=== PATIENT | male | born 1970 | race Caucasian/White ===

== ENCOUNTER 2018-09-18 10:04 | Emergency (ER) | payer BC ==
[2018-09-18 10:23] VITALS: BP 124/89
--- NOTE | 2018-09-18 11:05 | UC ---
Truncal Trauma HPI - HPI Summary HPI Summary: 48 yo male presents with RIGHT rib pain. He tells me that 2 days ago he was playing kickball and another player ran into him, impacting his right ribs. Since that time has had pain in the area - worse with coughing, movement, and deep breaths. He has been taking ibuprofen with good relief. Denies SOB, chest pain, abdominal pain, n/v. - History Of Current Complaint Chief Complaint: UCTrauma Stated Complaint: RIB INJURY Time Seen by Provider: 09/18/18 11:05 Hx Obtained From: Patient Onset/Duration: Sudden Onset Severity Initially: Moderate Severity Currently: Moderate Pain Intensity: 6 Pain Scale Used: 0-10 Numeric - Allergies/Home Medications Allergies/Adverse Reactions: Allergies Allergy/AdvReac Type Severity Reaction Status Date / Time No Known Allergies Allergy Verified 09/18/18 10:17 Home Medications: Home Medications Naproxen Sodium [Aleve] 440 mg PO ONCE 09/18/18 [History Confirmed 09/18/18] PMH/Surg Hx/FS Hx/Imm Hx - Additional Past Medical History Additional PMH: None - Surgical History Surgical History: Yes Surgery Procedure, Year, and Place: Hernia surgery. Vastectomy - Family History Known Family History: Positive: Non-Contributory - Social History Occupation: Employed Full-time Lives: With Family Alcohol Use: Occasionally Substance Use Type: None Smoking Status (MU): Never Smoked Tobacco Review of Systems All Other Systems Reviewed And Are Negative: Yes Constitutional: Positive: Negative Skin: Positive: Negative Respiratory: Positive: Negative Cardiovascular: Positive: Negative Gastrointestinal: Positive: Negative Neurovascular: Positive: Negative Musculoskeletal: Positive: Other: - Right rib pain Neurological: Positive: Negative Psychological: Positive: Negative Physical Exam - Summary Physical Exam Summary: GENERAL: NAD. WDWN. No pain distress. SKIN: No rashes, sores, lesions, or open wounds. CHEST: CTAB. No r/r/w. No accessory muscle use. Breathing comfortably and in no distress. CV: RRR. Without m/r/g. Pulses intact. Cap refill <2seconds ABDOMEN: Soft. NTTP. No distention or guarding No CVA tenderness. Bowel sounds present MSK: Right ribs ~8th-9th rib with TTP. No step off or ecchymosis. NEURO: Alert. PSYCH: Age appropriate behavior. Triage Information Reviewed: Yes Vital Signs: Initial Vital Signs Temp 97.2 F 09/18/18 10:18 Pulse 80 09/18/18 10:18 Resp 18 09/18/18 10:18 BP 124/89 09/18/18 10:18 Pulse Ox 100 09/18/18 10:18 Vital Signs Reviewed: Yes Truncal Trauma Course/Dx - Course Course Of Treatment: XR: IMPRESSION: #. Nondisplaced RIGHT seventh rib fracture anterolaterally. #. Negative for pneumothorax. Discussed results with pt. Advised to continue taking naproxen and try OTC lidocaine pain patch for relief. - Differential Dx/Diagnosis Provider Diagnosis: Right rib fracture Discharge - Sign-Out/Discharge Documenting (check all that apply): Patient Departure All imaging exams completed and their final reports reviewed: Yes - Discharge Plan Condition: Stable Disposition: HOME Patient Education Materials: Rib Fracture (ED) Referrals: Praveena Vaca MD [Primary Care Provider] - Additional Instructions: If you develop a fever, shortness of breath, chest pain, new or worsening symptoms - please call your PCP or go to the ED immediately. Try using an [id number] lidocaine patch to the area as directed May continue taking tylenol/ibuprofen as directed for discomfort - Billing Disposition and Condition Condition: STABLE Disposition: Home
== END 2018-09-18 12:00 | disposition home or self-care (01) ==
LOC: UCEAST 10:04
DX: S22.31XA Fracture of one rib, right side, initial encounter for closed fracture (principal); W50.0XXA Accidental hit or strike by another person, initial encounter; Y93.6A Activity, physical games generally associated with school recess, summer camp and children; Y92.328 Other athletic field as the place of occurrence of the external cause; Y99.8 Other external cause status
CPT/HCPCS: 99211; G0463